=== PATIENT | female | born 1980 | race Caucasian/White ===

== ENCOUNTER 2024-06-14 12:23 | Outpatient (AMB) | payer BC, SELFPAY ==
--- NOTE | 2024-06-14 13:26 | AM.OFFWIN_ITS ---
Intake Vital Signs 06/14/24 13:30 Height 5 ft 2 in Weight 164 lb BMI 30.0 BP 122/80 Blood Pressure Location Lt brachial Position Sitting Pulse 83 Pulse Source Pulse Oximeter Temp 98.1 F Temp Source Oral Pulse Oximetry (%) 99 Oxygen Delivery Method Room Air Intake Visit Reasons: Dropped Bottle on Lt ft Intake Note: pt c/o LT foot pain. Dropped full plastic bottle on foot. Happened last night Patient Tobacco Use Status: Never used Tobacco Allergies No Known Allergies Allergy (Verified 06/14/24 13:29) Do you need a note to return to daycare/school/sports/work: No HPI HPI Comments History of Present Illness Details Patient is a 44 year old complaining of left foot pain x1 day. They explained that last night they were moving a curtain in their hotel room and their daughters heavy plastic water bottle fell off the ledge onto their left foot. They state they were able to walk on it but it is very painful when they walk, they did ice it. They are visiting from outside of the area and have a lot of plans to do travelling including some hikes and they want to make sure it is not fractured. [facility] Social History Patient Tobacco Use Status: Never used Tobacco Review of Systems Const All systems reviewed & are unremarkable except as noted in HPI and below Physical Exam Vital Signs: Last Vital Signs Temp 98.1 F 06/14/24 13:30 Pulse 83 06/14/24 13:30 BP 122/80 06/14/24 13:30 Pulse Ox 99 06/14/24 13:30 Oxygen Delivery Method Room Air 06/14/24 13:30 BMI result Body Mass Index 30.0 Const General: cooperative, healthy appearing, comfortable and no acute distress Orientation/consciousness: patient oriented x3 Limitations: no limitations HEENT Head: Yes normal to inspection Resp Effort & Inspection: normal respiratory effort and able to speak in complete sentences Neuro General: patient oriented x3 Extrem Right lower extremity: normal to inspection Left lower extremity: normal to inspection, full ROM, normal capillary refill and foot Details: normal to inspection, tenderness Location: of the dorsal foot Location: medially, of the plantar foot (medial) and of the mid foot Location: dorsally and along the plantar surface; not of the calcaneus, not of the lateral foot and not of the medial foot, vascular exam Details: normal capillary refill, tendon exam Details: active flexion normal and active flexion abnormal and motor-sensory exam Details: light-touch normal; no abrasions, no lacerations and no ecchymosis Assessment & Plan Assessment & Plan (1) Left foot pain: Code(s): M79.672 - Pain in left foot Plan: X-ray shows no fracture, incidental finding of what looks like a bone chip near the heel. Gave patient instructions to rest, ice and use ibuprofen as needed, also gave French wrap for compression. Plan See above Orders: Orders XR foot LT min 3V Today M79.672 - Pain in left foot Coding Level of Care Code New Pt Level 4 (91467) Diagnoses Left foot pain M79.672
[2024-06-14 13:30] VITALS: BP 122/80; PULSE 83; TEMP 36.7; O2SAT 99
== END 2024-06-14 15:19 | disposition home or self-care (01) ==
PROVIDERS: Visit Provider Physician Assistant
DX: M79.672 Pain in left foot (principal)
CPT/HCPCS: 99204

== ENCOUNTER 2024-06-14 13:45 | Outpatient (REF) | payer BC, SELFPAY ==
--- NOTE | ~2024-06-14 | XR_ITS ---
EXAMINATION: XR FOOT, LEFT CLINICAL INFORMATION: Left foot pain. COMPARISON: None available. TECHNIQUE: AP, lateral, and oblique views of the left foot. FINDINGS: No fracture or malalignment. Bone mineralization is normal. Joint spaces are well-preserved. No erosions. No soft tissue calcifications. XR/XR foot LT min 3V IMPRESSION: Normal left foot radiographs.
== END 2024-06-14 13:46 | disposition home or self-care (01) ==
LOC: HO.HMGCX 13:45
PROVIDERS: Visit Provider Physician Assistant
DX: M79.672 Pain in left foot (principal)
CPT/HCPCS: 73630